=== PATIENT | female | born 1990 | race Caucasian/White ===

== ENCOUNTER → 2018-01-26 | Outpatient (CLI) | payer OTHER ==
--- NOTE | 2018-01-27 12:06 | EEG PRO FEE REPORT ---
EEG INTERPRETATION PATIENT NAME: FABIANO CABEZAS ROOM#: ORDER#: [id number] DATE OF STUDY: 01/26/2018 : 1990 REFERRING MD: BIBIANA KIM M.D. MEDICATIONS: Keppra, Lamictal, oral contraceptive pills History This is a 27 year old woman with a family history of epilepsy in her mother and a personal history of epilepsy since age 9. Her last seizure was two months ago. This EEG was requested for seizures. EEG Interpretation This EEG was recorded in the awake, drowsy, and sleep states. The awake EEG is characterized by a well organized background with a well developed and reactive posterior dominant rhythm of 10 Hz. There were several brief generalized or left>right fragments of notched theta slowing during eye closure that resolved with eye opening. Drowsiness was characterized by slowing of the background rhythms. Vertex waves were seen in the midline head region. Stage II sleep was characterized by sleep spindles. Photic stimulation resulted in a good driving response. Following photic stimulation, there was left>right generalized evolution of approximately 7 Hz theta lasting several seconds that resolved with instruction of the patient to open her eyes. Hyperventilation resulted in generalized slowing of the background rhythms. Also immediately following the cessation of hyperventilation, with eye closure, there was generalized approximately 6 Hz notched sharp and wave appearing fragment that evolved but with waxing and waning for approximately one and three quarter minutes until instruction to the patient to open her eyes. Again there was resolution with eye opening. There was no clinical correlation noted with any event. The EKG showed a regular rhythm. EEG Classification Notched theta-sharp and slow waves during eye closure EEG Impression This EEG is abnormal. 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 There were however no electro-clinical seizure correlations noted. Clinical correlation is recommended. INTERPRETING PHYSICIAN: AIDA HASSAN M.D. /: MTEFCARY TT: 1127 ID: [id number] /: [id number] TD: 2045 JOB: [id number] cc:Kenny SOTO M.D. > MTDD
== END ==
LOC: NEURO 13:03
PROVIDERS: ATTEND Pediatrics
DX: G40.89 Other seizures (principal)
CPT/HCPCS: 95819

== ENCOUNTER → 2018-08-03 | Outpatient (CLI) | payer OTHER ==
--- NOTE | 2018-08-04 08:58 | EEG PRO FEE REPORT ---
EEG INTERPRETATION PATIENT NAME: FABIANO CABEZAS ROOM#: ORDER#: [id number] DATE OF STUDY: 08/03/2018 : 1990 REFERRING MD: BIBIANA KIM M.D. MEDICATIONS: Lamictal, Keppra History This is a 27 year old right handed woman with a history of seizures since age 9, her last seizure was one month ago. Her last EEG was January 26, 2018. This EEG was requested for seizures. EEG Interpretation This EEG was recorded in the awake, drowsy, and sleep states. The awake EEG was characterized by a well organized background with a moderately developed and reactive posterior dominant rhythm of 10 Hz. Drowsiness is characterized by slowing of the background rhythms. Vertex waves and sleep spindles were seen in the midline head regions. Photic stimulation resulted in a good driving response. Hyperventilation resulted in generalized slowing of background. There were brief , generalized notched theta during the recording with eye closure, resolving with eye opening. These were most pronounced post hyperventilation lasting for a few seconds' duration on and off until eye opening. The EKG showed a regular rhythm. EEG Classification 1. Notched theta during eye closure, generalized EEG Impression This EEG is abnormal. Compared to the prior EEG dated 01/26/18 it continues to show eye closure sensitivity however there is less generalized notched theta. Clinical correlation is recommended. INTERPRETING PHYSICIAN: AIDA HASSAN M.D. /: MTEFFT TT: [id number] ID: [id number] /: [id number] TD: 2240 JOB: [id number] cc:Kenny SOTO M.D. > MTDD
== END ==
LOC: NEURO 13:08
PROVIDERS: ATTEND Pediatrics
DX: G40.89 Other seizures (principal)
CPT/HCPCS: 95819